=== PATIENT | female | born 1985 | race Caucasian/White ===

== ENCOUNTER 2016-12-13 12:03 | Inpatient (IN) | payer OTHER ==
--- NOTE | ~2016-12-13 | PN ---
Unit #: [id number] #: [id number] Patient: KILLIAN CARDOZA [id number] [facility] [address] [place] [address] [id number] MR#: [id number] NAME: KILLIAN CARDOZA ROOM: P181 Age: 31 Sex: F Admission Date: 12/13/2016 : 1985 Attending Physician: Roya Lopez M.D. Admitting Physician: Roya Lopez M.D. Primary Care Physician: Saturnino Garvin PROGRESS NOTES DATE December 17, 2016 DISCUSSION Ms. Cardoza is a 31-year-old white female, with substance abuse and mood disorder, who was seen today and chart was reviewed and the case was discussed with the staff. She has been anxious, withdrawn, but appears to be doing better and has been calm and cooperative with the treatment recommendations. She has been taking the medications and tolerating them fairly well with no reported side effects. MENTAL STATUS EXAMINATION Young white female, who was casually dressed with fair personal hygiene and appears to be in no acute distress or discomfort. She was awake and alert on interaction with intact orientation. Her mood was anxious with a congruent affect. The patient denies any suicidal or homicidal ideations, and also denies any auditory or visual hallucinations. Her insight and judgment remain slightly impaired. TREATMENT PLAN 1. We will continue her on her current medications and treatment protocol, and will monitor her response to the medications, and make further adjustments as needed. 2. We will continue to followup. Dictated by... Saturnino Nicole/jihan TD: 12/18/2016 12:20 JOB #: [id number] Unit #: [id number] #: [id number] Patient: KILLIAN CARDOZA PROGRESS NOTES Page 1 of 1 X Roya Lopez MD PROGRESS NOTE
--- NOTE | ~2016-12-13 | PN ---
Unit #: [id number] #: [id number] Patient: KILLIAN CARDOZA [id number] [facility] [address] [place] [address] [id number] I MR#: [id number] NAME: KILLIAN CARDOZA ROOM: P181 Age: 31 Sex: F Admission Date: 12/13/2016 : 1985 Attending Physician: Roya Lopez M.D. Admitting Physician: Roya Lopez M.D. Primary Care Physician: Saturnino Garvin PROGRESS NOTES DATE OF SERVICE: 12/16/2016 SUBJECTIVE Ms. Cardoza is a 31-year-old white female with mood disorder, who was seen today and chart was reviewed and case was discussed with the staff. She has been anxious, withdrawn, depressed, and rather seclusive to herself. Meanwhile, she has been taking the medications and tolerating them fairly well with no reported side effects. MENTAL STATUS EXAMINATION Young white female who was casually dressed with fair personal hygiene, appears to be in no acute distress or discomfort. She was awake and alert on interaction with intact orientation. Her mood was anxious with a congruent affect. Speech was slow and goal directed. She denies any suicidal or homicidal ideations, and also denies any auditory or visual hallucinations. Her insight and judgment remain slightly impaired. TREATMENT PLAN 1. We will continue her on her current medications and treatment protocol. We will monitor her response to the medications and make further adjustments as needed. 2. We will continue to follow up. Dictated by... Saturnino Nicole/alicia TD: 12/17/2016 18:58 JOB #: [id number] YANNICK PROGRESS NOTES Page 1 of 1 X Roya Lopez MD PROGRESS NOTE
--- NOTE | ~2016-12-13 | PA ---
Unit #: [id number] #: [id number] Patient: KILLIAN CARDOZA [id number] [place] [address] [id number] Paresh MR#: [id number] NAME: KILLIAN CARDOZA ROOM: P181 Age: 31 Sex: F Admission Date: 12/13/2016 : 1985 Date of Assessment: 12/13/2016 Attending Physician: Roya Lopez M.D. Admitting Physician: Roya Lopez M.D. Primary Care Physician: Buddy Drummond M.D. PSYCHIATRIC ASSESSMENT DATE OF SERVICE 12/13/2016. IDENTIFYING DATA Ms. Cardoza is a 31-year-old single white female, who is known to us from previous encounter, was recently discharged from my care and is currently a resident of [place], [place], and was self-referred to the hospital on a voluntary basis. CHIEF COMPLAINT "Suicidal with a plan to overdose on heroin." HISTORY OF PRESENT ILLNESS Ms. Cardoza is a 31-year-old white female, who is currently active in the chemical dependency intensive outpatient treatment program, where she was seen by me, and upon presentation, she stated that she was suicidal and had a plan to overdose on heroin and was stepped up to the inpatient unit. Upon presentation, she stated "I was referred by my special technical operations officer to complete the program. I was discharged from the program because I missed too many days. I relapsed on heroin and methamphetamine so discharged, and also used methamphetamine and heroin every day." She does report increasing depression, anxiety, irritability, restlessness, feelings of hopelessness and helplessness, and suicidal ideations with intent and plan. SUBSTANCE ABUSE HISTORY The patient has had history of substance abuse and dependence including cannabis, acid, opioids, and methamphetamine, and currently IV heroin and methamphetamine has been her drug of choice. PAST PSYCHIATRIC HISTORY The patient has had history of inpatient chemical dependency and psychiatric treatment at [facility], and review of the medical records indicate that currently she is not active in treatment program, is not seeing a psychiatrist, not taking any psychotropic medications. PAST MEDICAL HISTORY Hepatitis C and hypothyroidism. ALLERGIES No known medication allergies. PERSONAL AND SOCIAL HISTORY Unit #: [id number] #: [id number] Patient: KILLIAN CARDOZA A 31-year-old white female, who reports that she is single, unemployed, and lives at home with her mother and her sister and her son. MENTAL STATUS EXAMINATION Young white female who was casually dressed with fair personal hygiene, appears to be in no acute distress or discomfort. She was awake and alert on interaction with intact orientation to time, place, and person. Her mood was anxious and depressed with a congruent affect. Her speech was slow and goal directed. She reports having suicidal ideation, but denies any homicidal ideations, and also denies any auditory or visual hallucinations. Her insight and judgment remain significantly impaired. DIAGNOSTIC IMPRESSION Psychiatric: Major depressive disorder, recurrent, moderate, without psychotic features; opioid dependence, moderate; methamphetamine dependence, moderate. Medical: Hepatitis C and hypothyroidism. Stressors: Moderate psychosocial stressors. TREATMENT PLAN 1. The patient has presented with history of substance abuse and mood disorder, and has been decompensating and will need inpatient hospitalization for safety and stabilization. We will start her back on her home medications. We will adjust the medications and monitor response. 2. Supportive therapy was provided to the patient. ESTIMATED LENGTH OF STAY 14 to 21 days. ABILITY TO HELP SELF Limited. WILLINGNESS TO HELP SELF The patient appears to be willing to help self. STRENGTHS 1. Communicative. 2. Cooperative. PROBLEMS 1. Chronic dysphoric symptoms. 2. Chronic chemical dependency. 3. Poor social support system. DISCHARGE CRITERIA This will be contingent upon the patient's ability to show resolution of her depression and anxiety as well as her ability to stay safe to herself, particularly after discharge from the hospital. Dictated by... Saturnino Nicole/alicia TD: 12/14/2016 07:04 JOB #: [id number] Unit #: [id number] #: [id number] Patient: KILLIAN CARDOZA PSYCHIATRIC ASSESSMENT X Roya Lopez MD PSYCHIATRIC ASSESSMENT
--- NOTE | ~2016-12-13 | HP ---
Unit #: [id number] #: [id number] Patient: MARIANNA OWUSU [id number] [place] [address] [id number] I MR#: [id number] NAME: MARIANNA OWUSU ROOM: P181 Age: 31 Sex: F Admission Date: 12/13/2016 : 1985 Attending Physician: Roya Lopez M.D. Admitting Physician: Roya Lopez M.D. Primary Care Physician: Buddy Drummond M.D. HISTORY AND PHYSICAL HISTORY OF PRESENT ILLNESS Marianna is a 31 year old admitted to [facility] because of her poly illicit substance abuse which includes IV heroin and methamphetamine. PAST MEDICAL HISTORY 1. Long history of illicit substance abuse to include IV drugs 2. Hypothyroidism. PAST SURGICAL HISTORY 1. Left elbow 2. Appendectomy 3. section x1 ALLERGIES BuSpar SOCIAL HISTORY Smokes one pack per day. Drinks alcohol rarely to never. Admits to a long history of illicit substance abuse to include IV heroin and meth. FAMILY HISTORY Medically noncontributory. REVIEW OF SYSTEMS CONSTITUTIONAL: No fever or chills. HEENT: Denies any sore throat, ear pain or runny nose. CARDIOVASCULAR: Denies chest pain, irregular heart rhythm or palpitations. CHEST: Denies shortness of breath or cough. No hemoptysis. GASTROINTESTINAL: Denies nausea, vomiting, diarrhea or chronic constipation. ENDOCRINE: Denies history of increased thirst or urination. No recent significant weight loss or gain. GENITOURINARY: Denies dysuria, frequency, or hematuria. SKIN: Denies any rashes. HEMATOLOGIC: Denies history of increased bleeding or bruising. MUSCULOSKELETAL: Denies any hot, swollen joints. No generalized muscle pain. NEUROLOGIC: Denies problems with vision or speech. No frequent, severe headaches. No numbness, tingling or weakness in any extremities. Denies loss of bladder or bowel control. CURRENT MEDICATIONS Unit #: [id number] #: [id number] Patient: MARIANNA OWUSU 1. Desyrel 100 mg q.h.s. p.r.n. 2. Milk of Magnesia p.r.n. 3. Maalox p.r.n. 4. Tylenol p.r.n. 5. Nicotine patch 14 mg daily PHYSICAL EXAMINATION GENERAL: Alert, well-nourished, in no apparent distress. VITAL SIGNS: Blood pressure 113/86, heart rate 66, respirations 16, temperature 98.6. WEIGHT: 150 pounds. HEIGHT: 5'2". SKIN: Warm and dry without rash or lesion. HEENT: Normocephalic. TMs not viewed. Oral and nasal passages clear. Conjunctivae clear. Pupils equal, round and reactive to light and accommodation. Extraocular movements intact. NECK: Supple without lymphadenopathy or thyromegaly. HEART: Regular rate and rhythm without murmur. LUNGS: Clear. ABDOMEN: Soft, nontender. : Not done. EXTREMITIES: No evidence of cyanosis, clubbing or edema. Moves all extremities without focal deficit. NEUROLOGICAL: Grossly within normal limits. Cranial Nerves: II: Visual pruitt are intact. III, IV AND : Extraocular movements are intact. Pupils are equal, round and reactive to light. V: Facial sensation is grossly normal. VII: Facial movements and expression are normal. VIII: Auditory acuity grossly intact. IX, X: Uvula is midline. Phonation is normal. XI: Patient shrugs shoulders and turns head normally. XII: Tongue protrudes in the midline. Sensory and Motor Function: Sensory and motor sensation is grossly normal. Motor: moves all extremities well. Coordination: Gait is normal. Deep Tendon Reflexes: Intact. IMPRESSION Psychiatric admission RECOMMENDATIONS PSYCHIATRIC: Per psychiatrist. MEDICAL: I see no contraindications to participating in facility's activities. MEDICAL PROGNOSIS Good. MEDICAL CONDITION Stable. Dictated by... Elsi Winchester P.A.-C. for Allison Pringle M.D. Unit #: [id number] #: [id number] Patient: MARIANNA OWUSU SHASHA/gary TD: 12/14/2016 00:10 JOB #: [id number] HISTORY AND PHYSICAL X Elsi Winchester HISTORY AND PHYSICAL
--- NOTE | ~2016-12-13 | DS ---
Unit #: [id number] #: [id number] [facility] [id number] [facility] [address] [place] [address] [id number] I MR#: [id number] NAME: KILLIAN CARDOZA ROOM: [facility] Age: 31 Sex: F Admission Date: 12/13/2016 : 1985 Discharge Date: 12/18/2016 Attending Physician: Roya Lopez M.D. Primary Care Physician: Buddy Drummond M.D. DISCHARGE SUMMARY IDENTIFYING DATA Ms. Cardoza is a 31-year-old single white female, who is known to us from previous encounter, was recently discharged from my care and was self-referred to the hospital. DISCHARGE DIAGNOSES Psychiatric: Major depressive disorder, recurrent, moderate, without psychotic features; opioid dependence, moderate; methamphetamine dependence, moderate. Medical: Hepatitis C and hypothyroidism. Stressors: Moderate psychosocial stressors. HISTORY OF PRESENT ILLNESS Please see initial psychiatric evaluation for details. PAST PSYCHIATRIC HISTORY Please see initial psychiatric evaluation for details. PAST MEDICAL HISTORY Please see initial psychiatric evaluation for details. HOSPITAL COURSE The patient was admitted to the adult chemical dependency and psychiatric unit at [facility] josue Beebe and was oriented to the hospital environment. Routine p.r.n. medications were initiated, and she was started back on her home medications and detox protocol was initiated as well and she was started back on Depakote and Seroquel on request with good tolerability and therapeutic response. Followed by which, it was decided that she will be discharged home and will continue treatment on an outpatient basis. DISCHARGE MEDICATIONS Depakote 500 mg b.i.d. for mood disorder and Seroquel 100 mg at bedtime for mood disorder. DISCHARGE CONDITION Stable. PROGNOSIS Fair. Dictated by... Roya Lopez M.D. Unit #: [id number] #: [id number] Patient: KILLIAN CARDOZA IAA/modl TD: 12/18/2016 22:56 JOB #: [id number] DISCHARGE SUMMARY Page 1 of 1 X Roya Lopez MD X DISCHARGE SUMMARY
--- NOTE | ~2016-12-13 | PN ---
Unit #: [id number] #: [id number] Patient: KILLIAN CARDOZA [id number] [facility] [address] [place] [address] [id number] I MR#: [id number] NAME: KILLIAN CARDOZA ROOM: P181 Age: 31 Sex: F Admission Date: 12/13/2016 : 1985 Attending Physician: Roya Lopez M.D. Admitting Physician: Roya Lopez M.D. Primary Care Physician: Buddy Drummond M.D. [facility] PROGRESS NOTES DATE OF SERVICE: 12/15/2016 SUBJECTIVE Ms. Cardoza is a 31-year-old white female, who was seen today and chart was reviewed and the case was discussed with the staff. She has been anxious, withdrawn, and seclusive to herself, and she was laying in her bed and reports not feeling good and has been complaining of persistent depressive symptoms and requested to be started back on her bipolar medications including Depakote and Seroquel. MENTAL STATUS EXAMINATION Young white female, who was casually dressed with a fair personal hygiene and appears to be in no acute distress or discomfort. She was awake and alert on interaction with intact orientation. Her mood was anxious and depressed with a congruent affect. Her speech was slow and goal directed. She denies any current suicidal or homicidal ideations. Her insight and judgment remain slightly impaired. TREATMENT PLAN 1. We will continue her on her current medications and treatment protocol. We will monitor her response to the medications and make further adjustments as needed. 2. We will continue to follow up. Dictated by... Saturnino Nicole/alicia TD: 12/15/2016 16:28 JOB #: [id number] [facility] PROGRESS NOTES X Roya Lopez MD PROGRESS NOTE
[~2016-12-13 12:03] MED LIST: DIAZEPAM; SYNTHROID
== END 2016-12-18 09:30 | disposition home or self-care (01) | DRG 885 ==
LOC: POF 12:03 → P1E 14:02
DX: F33.1 Major depressive disorder, recurrent, moderate (principal); F11.20 Opioid dependence, uncomplicated; F15.20 Other stimulant dependence, uncomplicated; E03.9 Hypothyroidism, unspecified; B19.20 Unspecified viral hepatitis C without hepatic coma
CPT/HCPCS: 90853